=== PATIENT | male | born 1965 | race Caucasian/White ===

== ENCOUNTER 2021-01-22 08:13 | Day surgery (SDC) | payer OTHER ==
[~2021-01-22] VITALS: Ht 185.4 cm; Wt 126.0 kg
[~2021-01-22 08:13] MED LIST: ACETAMINOPHEN 500 MG TABLET PO PRN; B CO1TAB10 PO; HYDROmorphone 2 MG/ML VIAL IVP PRN; IV RINGERS,LACTATED 1000ML 1,000 ML IV SCH; MULT-121 PO; PROCHLORPERAZINE 10 MG/2 ML VIAL. IVP PRN; ceFAZolin SODIUM 3 GM in IV DEXTROSE 5% 100ML 100 ML IV PRN; fentaNYL PF VIAL 100 MCG/2 ML VIAL IVP PRN
[2021-01-22 08:40] VITALS: BP 140/80
[2021-01-22] MEDS ORDERED: DEXAMETHASONE SOD PHOS 4 MG/ML VIAL ONE (09:04)
[2021-01-22] MEDS ORDERED: ONDANSETRON PF 4 MG/2 ML VIAL. ONE ×2 (09:04→12:03)
[2021-01-22] MEDS ORDERED: PROPOFOL 10 MG/ML (20ML) VIAL. IV ONE (09:04)
[2021-01-22] MEDS ORDERED: fentaNYL PF VIAL 100 MCG/2 ML VIAL ONE ×3 (09:05→11:24)
[2021-01-22] MEDS ORDERED: ROCURONIUM 50 MG/5 ML VIAL. ONE (09:05)
[2021-01-22] MEDS ORDERED: MIDAZOLAM HCL/PF 2 MG/2 ML VIAL. ONE (09:06)
[2021-01-22] MEDS ORDERED: LIDOCAINE 1% PF 5 ML VIAL. ONE (09:07)
[2021-01-22] MEDS ORDERED: BUPIVACAINE-EPI 0.25%-1:200000 MPF 30 ML VIAL. ONE (09:10)
[2021-01-22] MEDS ORDERED: SEVOFLURANE 31 TO 60 MINUTES. IH ONE (09:58)
[2021-01-22] MEDS ORDERED: ePHEDrine PF IN SALINE 50 MG/10 ML SYRINGE. IV ONE (09:58)
[2021-01-22] MEDS ORDERED: NEOSTIGMINE METHYLSULFATE 5 MG/5 ML SYRINGE. ONE (10:08)
[2021-01-22] MEDS ORDERED: GLYCOPYRROLATE 1 MG/5 ML VIAL. ONE (10:08)
--- NOTE | 2021-01-22 11:02 | PDOC4 ---
Operative Note Operative Note Date: January 22, 2021 at 1059 Preoperative diagnosis: Recurrent incisional hernia Postoperative diagnosis: Incarcerated recurrent incisional hernia Procedure: Robotic assisted laparoscopic incisional hernia repair with mesh Surgeon: Kyle Specimen: None Dictation: Patient is a 55-year-old male with complaints of a painful bulge just above his umbilicus where he previously had an incision from her surgery he previously had a umbilical hernia repair. CT scan shows recurrent hernia with incarcerated omentum. The procedure of robotic assisted laparoscopic incisional hernia repair with mesh was explained to the patient detail all risk benefits were also discussed occluding bleeding infection injury to intra-abdominal contents possible necessitating further open operations alternatives to the procedure also discussed with the patient who seemed to understand and gave a verbal written consent to have the procedure performed. Patient was taken to [facility] operating room placed in the supine position general anesthesia was initiated once patient was sleeping intubated his abdomen was prepped and draped usual sterile fashion using ChloraPrep. Area in the left upper quadrant was injected with quarter percent Marcaine with epinephrine a small incision was made 11 blade scalpel and a 5 mm Visiport was placed under direct visualization into the abdomen creating pneumoperitoneum once this complete 5 mm camera was placed within the abdomen and inspected was noted there was omentum within 2 hernia defects near the umbilicus. A 8 mm da Jonh port was placed in the left midabdomen and an 8 mm da Jonh port was placed in left lower abdomen and the 5 mm Visiport was changed out for 8 mm da Jonh port. The da Jonh robot was brought and docked all port sites surgeon went to the robotic console using a grasper and Endo Asher scissors the incarcerated omentum was reduced from the hernia defects. The hernia defects were then closed with a running 2 OV lock nonabsorbable suture. Ventral light ST mesh was then placed over the hernia defect this was sewn into place with a 2-0 running V-Loc absorbable suture circumferentially. Once this was complete sutures removed from the abdomen the da Jonh robot was undocked from all ports pneumoperitoneum was reduced all ports were removed all port sites were all closed with 4-0 subcuticular Monocryl Mastisol Steri-Strips and island dressings were applied. Patient was awakened and extubated in the operating room taken to recovery in stable condition all sponge instrument needle counts listed as correct estimated blood loss 10 mL NESTOR CASAS MD Jan 22, 2021 11:02
[2021-01-22] MEDS ORDERED: OXYC-325 PO (11:04)
--- NOTE | 2021-01-22 11:05 | DISCH ---
DISCHARGE INSTRUCTIONS Condition on Discharge Condition on Discharge: Stable Activity After Discharge Activity Instructions for Disc: Avoid exertion Other activity instructions: No lifting more than 20 pounds for 2 weeks Diet after Discharge Diet after Discharge: Regular Wound Incision Care Other wound/incision instructi: Cassandra shower in 24 hours Contacting the after DC Call your doctor for: If your condition worsens Follow-Up Follow up with: Dr. Casas in 2-week NESTOR CASAS MD Jan 22, 2021 11:05
[2021-01-22] MEDS ORDERED: MORPHINE SULFATE 2 MG/ML INJ. ONE ×2 (11:17→12:27)
[2021-01-22] MEDS: MORPHINE SULFATE 2 MG/ML INJ. IVP PRN ×3 (11:18→12:28)
[2021-01-22] MEDS: fentaNYL PF VIAL 100 MCG/2 ML VIAL IVP PRN ×2 (11:25→11:47)
[2021-01-22] MEDS ORDERED: HYDROcodone/APAP 5/325MG 1 TAB TABLET PO ONE (11:45)
[2021-01-22 12:09] VITALS: BP 126/83
[2021-01-22] MEDS ORDERED: ONDANSETRON PF 4 MG/2 ML VIAL. IVP ONE (12:15)
== END 2021-01-22 12:43 | disposition home or self-care (01) ==
LOC: SURG 08:13
PROVIDERS: ATTEND Surgery
DX: K43.0 Incisional hernia with obstruction, without gangrene (principal); E78.00 Pure hypercholesterolemia, unspecified; M19.90 Unspecified osteoarthritis, unspecified site; Z87.891 Personal history of nicotine dependence; Z79.899 Other long term (current) drug therapy; Z90.49 Acquired absence of other specified parts of digestive tract; Z98.890 Other specified postprocedural states; Z91.013 Allergy to seafood; Z91.041 Radiographic dye allergy status
CPT/HCPCS: 49657; A4364; A4930; A6219; C1781; J1100; J2270; J2405; J2704; J2710; J3010; J3490; S2900; A4657; J2250